=== PATIENT | male | born 1980 | race Caucasian/White ===

== ENCOUNTER 2019-03-28 09:00 | Emergency (ER) | payer OTHER ==
[~2019-03-28] VITALS: Ht 188 cm; Wt 108.9 kg
--- NOTE | 2019-03-28 09:12 | NUR ---
DR BOWEN AT BEDSIDE FOR EVAL. PATIENT IS ON A MONITOR. 12 LEAD EKG DONE..
[2019-03-28] MEDS ORDERED: FISH OIL (09:16)
[2019-03-28] MEDS ORDERED: KETOROLAC TROMETHAMINE 15 MG INJ IVP ONE (09:30)
[2019-03-28] MEDS ORDERED: KETOROLAC TROMETHAMINE 30 MG INJ ONE (09:34)
[2019-03-28 09:38] LABS: BASOPHILS # (AUTO) 0.1 K/uL (0.0-8.0); BASOPHILS % (AUTO) 0.6 % (0.0-2.0); EOSINOPHILS # (AUTO) 0.1 K/uL (0.0-0.7); EOSINOPHILS % (AUTO) 1.4 % (0.0-7.0); HEMATOCRIT 41.5 % (36.7-47.1); LYMPHOCYTES # (AUTO) 1.9 K/uL (20.0-40.0); LYMPHOCYTES % (AUTO) 20.4 % (20.5-51.5); MEAN CORPUSCULAR HEMOGLOBIN 29.1 uug (23.8-33.4); MEAN CORPUSCULAR HGB CONC 34 g/dL (32.5-36.3); MEAN CORPUSCULAR VOLUME 86.2 fL (73.0-96.2); MONOCYTES # (AUTO) 0.8 K/uL (2.0-10.0); MONOCYTES % (AUTO) 8.4 % (0.0-11.0); NEUTROPHILS # (AUTO) 6.6 K/uL (1.8-8.9); NEUTROPHILS % (AUTO) 69.2 % (38.5-71.5); PLATELET COUNT (AUTO) 216 K/uL (152-348); RED BLOOD CELL COUNT(AUTO) 4.81 MIL/uL (4.06-5.63); WHITE BLOOD COUNT (AUTO) 9.5 K/uL (3.6-10.2)
[2019-03-28 09:46] LABS: POTASSIUM 3.9 mmol/L (3.5-5.1)
[2019-03-28 09:57] LABS: BILIRUBIN,DIRECT 0.1 mg/dL (0.0-0.2); BILIRUBIN,TOTAL 0.4 mg/dL (0.2-1.0); TOTAL PROTEIN, SERUM 7.3 g/dL (6.4-8.2)
--- NOTE | 2019-03-28 10:22 | NUR ---
IV removed. Catheter intact and site benign. Pressure and 4x4 gauze applied to site. No bleeding noted.
--- NOTE | 2019-03-28 10:22 | NUR ---
DC, RX AND FOLLOW UP INSTRUCTIONS GIVEN AND EXPLAINED TO PATIENT WHO STATES HE UNDERSTANDS ALL INSTRUCTIONS.
--- NOTE | 2019-03-28 10:22 | NUR ---
PATIENT STATES PAIN HAS DIMINISHED.
== END 2019-03-28 10:25 | disposition home or self-care (01) ==
LOC: ER 09:03
DX: R07.2 Precordial pain (principal); E66.9 Obesity, unspecified; Z88.0 Allergy status to penicillin; Z79.899 Other long term (current) drug therapy
CPT/HCPCS: 36415; 71046; 80048; 80076; 84484; 85025; 93005; 96374; 99284; J1885; 70030-TC; A4663